=== PATIENT | female | born 1970 | race Caucasian/White ===

== ENCOUNTER → 2023-09-09 10:18 | Outpatient (REF) | payer BC, SELFPAY | LOC: RAD 10:18 | PROVIDERS: ATTENDING PHYSICIAN Obstetrics & Gynecology; FAMILY PHYSICIAN Nurse Practitioner Adult Health | DX: N92.0 Excessive and frequent menstruation with regular cycle (principal) | CPT/HCPCS: 76830; 76856 ==

== ENCOUNTER → 2023-10-13 12:37 | Outpatient (REF) | payer BC, SELFPAY | LOC: HWWDC 12:37 | PROVIDERS: ATTENDING PHYSICIAN Obstetrics & Gynecology; FAMILY PHYSICIAN Nurse Practitioner Adult Health | DX: Z12.31 Encounter for screening mammogram for malignant neoplasm of breast (principal) | CPT/HCPCS: 77063; 77067 ==

== ENCOUNTER → 2023-10-20 09:47 | Outpatient (REF) | payer BC, SELFPAY | LOC: WDC 09:47 | PROVIDERS: ATTENDING PHYSICIAN Obstetrics & Gynecology; FAMILY PHYSICIAN Nurse Practitioner Adult Health | DX: R92.8 Other abnormal and inconclusive findings on diagnostic imaging of breast (principal) | CPT/HCPCS: 77065 ==

== ENCOUNTER → 2023-10-30 09:48 | Outpatient (REF) | payer BC, SELFPAY | LOC: WDC 09:48 | PROVIDERS: ATTENDING PHYSICIAN Obstetrics & Gynecology; FAMILY PHYSICIAN Nurse Practitioner Adult Health | DX: R92.2 Inconclusive mammogram (principal) | CPT/HCPCS: 76641 ==

== ENCOUNTER 2024-09-14 06:03 | Day surgery (SDC) | payer BC, SELFPAY ==
[2024-08-26 10:42] LABS: % Basophils 1.3 % (0-2); % Eosinophils 6.2 % (0-6); % Immature Granulocytes 0.4 % (0-0.5); % Lymphocytes 27.5 % (20.5-51.1); % Monocytes 9.7 % (1.7-9.3); % Neutrophils 54.9 % (42.2-75.2); Absolute Basophils 0.1 10^3/uL (0-0.2); Absolute Eosinophils 0.5 10^3/uL (0-0.7); Absolute Lymphocytes 2.1 10^3/uL (1.2-3.4); Absolute Monocytes 0.8 10^3/uL (0.1-0.6); Absolute Neutrophils 4.3 10^3/uL (1.4-6.5); Hematocrit 35.6 % (37.0-47.0); Hemoglobin 11.6 g/dL (12.0-16.0); Mean Corp Hgb Conc. 32.6 g/dL (33.0-37.0); Mean Corpuscular Hgb 29.6 pg (27.0-31.0); Mean Corpuscular Volume 90.8 fL (81.0-99.0); Mean Platelet Volume 9.9 fL (7.4-10.4); Nucleated Red Blood Cells % 0 %; Platelet Count 322 10^3/uL (130-400); Red Blood Cell Count 3.92 10^6/uL (4.20-5.40); Red Cell Dist. Width 12.3 % (11.5-14.5); White Blood Cell Count 7.7 10^3/uL (4.8-10.8)
[2024-08-26 10:51] LABS: INR 0.95; PT 13.2 Sec (11.4-14.6)
[2024-08-26 11:06] LABS: Blood Urea Nitrogen 13 mg/dl (7-17); Calcium 10.4 mg/dl (8.4-10.2); Carbon Dioxide 23 mmol/L (22-30); Chloride 103 mmol/L (98-107); Glucose 95 mg/dl (70-99); Potassium 4.4 mmol/L (3.5-5.1); Sodium 135 mmol/L (135-145); eGFR > 60.00
[2024-08-26 11:23] LABS: Beta HCG Quantitative < 2.39 mIU/ml
[2024-08-26 12:53] VITALS: BMI 41.1
[2024-09-14] VITALS (11 sets, daily range): BP systolic 97–166; BP diastolic 55–95; BMI 41.1
[2024-09-14] MEDS: HEPARIN 5000 UNITS SC (06:49)
[2024-09-14] MEDS: NORMOSOL-R/PLASMALYTE-A 1000 IV (06:50)
[2024-09-14] MEDS: TORADOL 15 MG IV (09:56)
[2024-09-14] MEDS: DILAUDID 0.25 MG IV (10:10)
[2024-09-14] MEDS: TYLENOL 650 MG PO (12:38)
== END 2024-09-14 14:10 | disposition home or self-care (01) ==
LOC: SDS 06:03
PROVIDERS: ATTENDING PHYSICIAN Obstetrics & Gynecology; FAMILY PHYSICIAN Nurse Practitioner Adult Health; REFERRING PHYSICIAN Internal Medicine Cardiovascular Disease
DX: D25.2 Subserosal leiomyoma of uterus (principal); N84.0 Polyp of corpus uteri; N87.9 Dysplasia of cervix uteri, unspecified; N83.202 Unspecified ovarian cyst, left side; N83.201 Unspecified ovarian cyst, right side; N92.0 Excessive and frequent menstruation with regular cycle
CPT/HCPCS: 58571; 88307; 36415; 80048; 84702; 85025; 85610; 86850; 86900; 86901; 93005

== ENCOUNTER → 2024-10-25 15:42 | Outpatient (REF) | payer BC, SELFPAY ==
--- NOTE | 2024-09-14 09:05 | W.IMMPOSTOP ---
Addendum entered and electronically signed by Emerita Caro DO 09/14/24 19:22:
urine output: 500ml clear yelow urine
Original Note:
Surgical Immed Post Op Note
-
Primary Surgeon: Emerita Caro DO
Underlay Stitcher: Dr. Yoder
Pre-op Diagnosis: Menorrhagia; fibroid uterus
Post-op Diagnosis: same
Procedure Performed: robotic assisted total laparoscopic hysterectomy bilateral salpingo-oopherectomy
Anesthesia Type: general ET Dr. Layne
Specimen / Cultures: uterus, cervix bilateral fallopian tubes and bilateral ovaries
Estimated Blood Loss: 10ml
Complications: counts correct times 2
Operative Findings: Enlarged fibroid uterus, normal appearing tubes and ovaries.
Counts correct times 2.
Stable to recovery.
== END | disposition home or self-care (01) ==
LOC: WDC 15:42
PROVIDERS: ATTENDING PHYSICIAN Obstetrics & Gynecology; FAMILY PHYSICIAN Nurse Practitioner Adult Health
DX: Z12.31 Encounter for screening mammogram for malignant neoplasm of breast (principal)
CPT/HCPCS: 77063; 77067